=== PATIENT | female | born 1955 | race Caucasian/White ===

== ENCOUNTER 2017-01-02 15:36 | Day surgery (SDC) | payer BC ==
[~2017-01-02] VITALS: Ht 170.2 cm; Wt 88.7 kg
[2017-01-02 16:23] VITALS: Ht 170.2 cm; Wt 88.7 kg
[2017-01-02] MEDS ORDERED: OMEPRAZOLE (16:42)
[2017-01-02] MEDS ORDERED: LIDOCAINE 100 MG SYRINGE ONE (16:48)
[2017-01-02] MEDS ORDERED: FENTAnyl 50 MCG/ML VIAL ONE (16:48)
[2017-01-02] MEDS ORDERED: PROPOFOL 0 ML ONE (16:48)
[2017-01-02 17:00] VITALS: BP 100/65; PULSE 20; RESP 20
[2017-01-02] MEDS ORDERED: PROPOFOL 40 ML ONE (17:09)
--- NOTE | 2017-01-02 17:39 | OPPN ---
Date/Time of Note Date/Time of Note DATE: 01/02/17 TIME: 17:38 Operative Report Preoperative Diagnosis Abdominal pain Screening colonoscopy Postoperative Diagnosis Gastritis Internal hemorrhoids No colon neoplasm was identified Operation/Procedure Performed Esophagogastroduodenoscopy and biopsy Colonoscopy Surgeon see signature line office administrative assistant None Anesthesia: MAC Estimated blood loss: none Transfusion Required none Specimen Gastric mucosal biopsy Grafts/Implants none Complications none BRE VERA MD Jan 02, 2017 17:39
[2017-01-02 18:02] VITALS: BP 109/67; RESP 14
--- NOTE | 2017-01-03 10:19 | GILP ---
DATE OF PROCEDURE: NAME OF PROCEDURE: 1. Esophagogastroduodenoscopy and biopsy. 2. Colonoscopy. SURGEON: Bre Silverman MD. PREOPERATIVE DIAGNOSES: 1. Abdominal pain. 2. Screening colonoscopy. POSTOPERATIVE DIAGNOSES 1. Gastritis with erosions. 2. Gastric mucosal biopsies were taken for Helicobacter pylori test. 3. Colonoscopy all the way to the cecum. 4. Internal hemorrhoids. 5. No colon neoplasm was identified. INDICATION FOR THE PROCEDURE: Ms. Sheron Ahumada is a 61-year-old female patient who had upper abdomi nal pain, not responding to therapy. She also needed screening colonoscopy. The procedures and possible complications were well explained to the patient. The patient understoo d and consented to the procedure. DESCRIPTION OF PROCEDURE: Under the influence of anesthesia, the gastroscope was carefully introduc ed into the esophagus and under direct vision, it was advanced to the stomach and through the pyloru s into the duodenal bulb and descending duodenum. FINDINGS: ESOPHAGUS: The mucosa was normal. STOMACH: Patient had gastritis with erosions. Gastric mucosal biopsies were taken for H. pylori te st. DUODENUM: Normal. The colonoscope was carefully introduced in the rectum and under direct vision, it was advanced all the way to the cecum. FINDINGS: The patient had internal hemorrhoids. No colon neoplasm was identified. She tolerated the procedure very well and there was no complication from the procedure. At the end of the procedure, she was awake with stable vital signs and she was discharged home to the care of h er family. IMPRESSION: Please see postoperative diagnosis. PLAN: 1. Continue omeprazole. 2. Add Zantac 300 mg p.o. at bedtime. 3. Next screening colonoscopy in 10 years. Dictated By: BRE ETIENNE/ADRIAN Conf#: [id number] DID#: [id number]
== END 2017-01-02 18:15 | disposition home or self-care (01) ==
LOC: GIL 15:36
PROVIDERS: ATTEND Internal Medicine Gastroenterology
DX: Z12.11 Encounter for screening for malignant neoplasm of colon (principal); R10.9 Unspecified abdominal pain; K64.8 Other hemorrhoids; K25.9 Gastric ulcer, unspecified as acute or chronic, without hemorrhage or perforation; K29.50 Unspecified chronic gastritis without bleeding
CPT/HCPCS: 43239; 45378; 87081; J2001; J3010